=== PATIENT | male | born 1945 | race American Indian/Alaskan Native ===

== ENCOUNTER 2017-05-21 06:08 | Day surgery (SDC) | payer MEDICARE ==
[2017-05-21 07:38] LABS: Hematocrit 39.3 % (35.5-45.6); Hemoglobin 12.6 gm/dl (11.8-15.2); Mean Corpuscular HGB Conc 32 % (32-34); Mean Corpuscular Hemoglobin 26 pg (28-32); Mean Corpuscular Volume 82 fl (84-94); Platelet Count 214 K/mm3 (140-440); Red Blood Count 4.81 M/mm3 (3.65-5.03); Red Cell Distribution Width 15.6 % (13.2-15.2); White Blood Count 11.5 K/mm3 (4.5-11.0)
[2017-05-21 07:47] LABS: INR 1.11 (0.87-1.13)
[2017-05-21 07:48] LABS: Partial Thromboplastin Time 29.1 Sec. (24.2-36.6)
[2017-05-21 08:19] LABS: Anion Gap 18 mmol/L; Blood Urea Nitrogen 26 mg/dL (9-20); Calcium 8.7 mg/dL (8.4-10.2); Carbon Dioxide 23 mmol/L (22-30); Chloride 107.9 mmol/L (98-107); Glucose 107 mg/dL (75-100); Potassium 3.7 mmol/L (3.6-5.0); Sodium 145 mmol/L (137-145)
[2017-05-21 08:27] LABS: Anisocytosis 1+; Basophils % (Manual) 0 % (0.0-1.8); Blastocytes % (Manual) 0 %; Eosinophils % (Manual) 0 % (0.0-4.3); Ovalocytes Few
[2017-05-21 08:28] LABS: Burr Cells Few; Diff Status Complete; Helmet Cells Few
[2017-05-21] MEDS ORDERED: GELFOAM 12 X 7 TP ONE ×2 (09:39→10:00)
[2017-05-21] MEDS ORDERED: VERSED IV ONE (10:00)
[2017-05-21] MEDS ORDERED: SUBLIMAZE IV ONE (10:00)
--- NOTE | 2017-05-21 10:05 | Operative Report ---
Operative Report Operative Report: Procedure: CT guided biopsy of a left renal mass Date: 05/21/2017 Physician: Nakul Sandoval MD Indication: 72 y/o male with multiple arterially enhancing renal masses Technique: The patient was placed in the prone position on the CT table. A marking grid was placed, and a preliminary image was acquired. A location was marked, and a timeout was performed. The patient was prepped and draped, and local anesthetic was administered. Under sequential CT guidance a 15cm 18 gauge trocar needle was advance to the periphery of a left renal lesion. Three good quality 18 gauge core specimen were acquired with a [email or web address] core biopsy device. Gellfoam was injected along the tract, and a final image was acquired. A dressing was placed, and the patient was transported back to the holding area in good condition. Findings: Review of outside imaging demonstrates multiple bilateral arterially enhancing renal lesions. With the approval of Dr. Viera, a left sided exophytic 2.5 cm lesion was selected for biopsy. Three good quality specimen were acquired, with onsite pathology. There was a small amount of dannie-lesional hemorrhage, so gelfoam was injected along the needle tract. Specimen: Left renal lesion EBL: <5 cc
[2017-05-21 13:24] LABS: Hematocrit 39.4 % (35.5-45.6); Hemoglobin 12.6 gm/dl (11.8-15.2)
[2017-05-21 17:12] VITALS: BP 129/81
== END 2017-05-21 15:00 | disposition home or self-care (01) ==
LOC: CT 06:08 → CATHLABREC 06:08 → EDSTATUS 08:30 → CATHLABREC 15:00
PROVIDERS: ATTEND Urology
DX: N28.89 Other specified disorders of kidney and ureter (principal)
CPT/HCPCS: 36415; 50200; 77012; 80048; 85007; 85014; 85018; 85025; 85610; 85730; 88173; 88305; 88333; 88341; 88342; A4649; J2250; J3010

== ENCOUNTER 2017-07-14 06:23 | Day surgery (SDC) | payer MEDICARE ==
[2017-07-14 07:19] LABS: Basophils % (Auto) 0.8 % (0.0-1.8); Eosinophils % (Auto) 6.8 % (0.0-4.3); Hematocrit 40.3 % (35.5-45.6); Hemoglobin 12.9 gm/dl (11.8-15.2); Mean Corpuscular HGB Conc 32 % (32-34); Mean Corpuscular Hemoglobin 26 pg (28-32); Mean Corpuscular Volume 83 fl (84-94); Platelet Count 196 K/mm3 (140-440); Red Blood Count 4.89 M/mm3 (3.65-5.03); White Blood Count 6.9 K/mm3 (4.5-11.0)
[2017-07-14 07:29] LABS: INR 0.99 (0.87-1.13)
[2017-07-14 07:30] LABS: Partial Thromboplastin Time 27.6 Sec. (24.2-36.6)
[2017-07-14] MEDS ORDERED: VERSED IV ONE ×2 (09:56→11:00)
[2017-07-14] MEDS ORDERED: SUBLIMAZE ONE (09:56)
[2017-07-14] MEDS ORDERED: GELFOAM 12 X 7 TP ONE (10:32)
[2017-07-14] MEDS ORDERED: SUBLIMAZE IV ONE (11:00)
--- NOTE | 2017-07-14 14:21 | Operative Report ---
Operative Report Operative Report: Operative Report: Procedure: CT guided biopsy of a right renal mass Date: 07/14/2017 Physician: Nakul Sandoval MD Indication: 72 y/o male with multiple arterially enhancing renal masses Technique: The patient was placed in the prone position on the CT table. A marking grid was placed, and a preliminary image was acquired. Thereafter contrast enhanced and delayed images were acquired in order to better visualize the target lesion. A location was marked, and a timeout was performed. The patient was prepped and draped, and local anesthetic was administered. Under sequential CT guidance a 6.8 cm 17 gauge trocar needle was advance to the periphery of the right renal lesion. Three good quality 18 gauge core specimen were acquired with a [employer] core biopsy device. Gellfoam was injected along the tract, and a final image was acquired. A dressing was placed, and the patient was transported back to the holding area in good condition. Findings: Imaging reveals a 1 cm arterially enhancing lesion along the cortex of the right kidney. Three good quality specimen were acquired, with onsite pathology. Gelfoam was preemptively injected along the tract. Final imaging demonstrated no significant perilesional hemorrhage. Specimen: Right renal lesion EBL: <5 cc
[2017-07-14 14:46] VITALS: BP 108/64
== END 2017-07-14 14:48 | disposition home or self-care (01) ==
LOC: CATHLABREC 06:23 → EDSTATUS 08:30 → CATHLABREC 14:48
PROVIDERS: ATTEND Radiology Diagnostic Radiology
DX: N28.89 Other specified disorders of kidney and ureter (principal)
CPT/HCPCS: 36415; 50200; 74160; 77012; 85025; 85610; 85730; 88305; 88342; A4649; J2250; J3010; Q9967